=== PATIENT | male | born 1995 | race Two or more races ===

== ENCOUNTER 2017-10-17 10:29 | Emergency (ER) | payer MEDICAID ==
[~2017-10-17] VITALS: Ht 188 cm; Wt 78.9 kg
[2017-10-17 10:34] VITALS: BP 144/84
[2017-10-17] MEDS ORDERED: FLUORESCEIN SODIUM OPHTH 1 EA STRIP ONE (11:42)
[2017-10-17] MEDS ORDERED: TETRACAINE HCL/PF 0.5% UD 2 ML BOTTLE ONE (11:42)
[2017-10-17] MEDS ORDERED: IBUPROFEN 600 MG TABLET PO ONE ×2 (11:42→12:00)
--- NOTE | 2017-10-17 11:48 | NUR ---
URINE SAMPLE COLLECTED SENT TO LAB
[2017-10-17 11:50] LABS: APPEARANCE,URINE Clear (CLEAR); BILIRUBIN,URINE Negative (NEGATIVE); BLOOD, URINE Negative Ery/uL (NEGATIVE); COLOR,URINE Yellow (YELLOW); KETONES,URINE Negative (NEGATIVE); LEUKOCYTE ESTERASE ,URINE Negative (NEGATIVE); NITRITE, URINE Negative (NEGATIVE); PROTEIN,URINE Negative (NEGATIVE); UGLUCOSE Negative (NEGATIVE); UROBILINOGEN,URINE 0.2 EU/dL (0.2)
[2017-10-17] MEDS ORDERED: FLUORESCEIN SODIUM OPHTH 1 EA STRIP OP ONE (12:00)
[2017-10-17] MEDS ORDERED: TETRACAINE HCL 0.5% OPHTALMIC 15 ML BOTTLE OP ONE (12:00)
== END 2017-10-17 12:54 | disposition home or self-care (01) ==
LOC: ER 10:32
DX: H10.30 Unspecified acute conjunctivitis, unspecified eye (principal); N48.89 Other specified disorders of penis
CPT/HCPCS: 81000-TC; 87491; 87591; A4606; Z7610

== ENCOUNTER 2017-11-22 16:47 | Emergency (ER) | payer MEDICAID ==
[~2017-11-22] VITALS: Ht 188 cm; Wt 86.2 kg
[2017-11-22 17:00] VITALS: BP 132/61
[2017-11-22] MEDS ORDERED: TDAP [DIPH/PERTUSSIS/TET] 0.5 ML VIAL IM ONE ×2 (17:30→17:36)
== END 2017-11-22 17:44 | disposition home or self-care (01) ==
LOC: ER 16:48
DX: S61.012A Laceration without foreign body of left thumb without damage to nail, initial encounter (principal); Z23 Encounter for immunization; W26.0XXA Contact with knife, initial encounter; Y93.89 Activity, other specified; Y92.89 Other specified places as the place of occurrence of the external cause; Y99.8 Other external cause status
CPT/HCPCS: 90715; A4606; A6402; Z7610